=== PATIENT | male | born 1985 | race Caucasian/White ===

== ENCOUNTER 2022-03-20 14:55 | Emergency (ER) | payer OTHER ==
[~2022-03-20] VITALS: Ht 188 cm; Wt 86.4 kg
[2022-03-20] MEDS ORDERED: KETOROLAC 30 MG/ML 1ML VIAL IM ONE (17:55)
[2022-03-20 18:39] VITALS: BP 155/90
== END 2022-03-20 18:55 | disposition home or self-care (01) ==
LOC: M ED 14:55
DX: S99.911A Unspecified injury of right ankle, initial encounter (principal); X50.1XXA Overexertion from prolonged static or awkward postures, initial encounter; Y93.89 Activity, other specified
CPT/HCPCS: 73610; 96372; 99284; J1885

== ENCOUNTER 2022-06-24 06:01 | Emergency (ER) | payer BC, OTHER ==
[~2022-06-24] VITALS: Ht 188 cm; Wt 95.5 kg
[2022-06-24] MEDS ORDERED: KETOROLAC 30 MG/ML 1ML VIAL IV ONE (07:35)
[2022-06-24] MEDS ORDERED: ONDANSETRON 4MG 2ML VIAL IV ONE (07:35)
[2022-06-24] MEDS ORDERED: NS 1,000 ML IV ONE (07:35)
[2022-06-24] MEDS ORDERED: NIRM1TAB6 PO (07:56)
[2022-06-24 08:36] LABS: EOS % 0.4 % (0.0-3.0); HEMATOCRIT 41.7 % (42.0-52.0); HEMOGLOBIN 14.7 g/dl (13.5-17.5); LYMPH # 0.7 10^3/uL (1.5-5.0); LYMPH % 13.9 % (24.0-44.0); MEAN CORPUSCULAR HGB CONC 35.3 g/dl (32.0-36.5); MEAN CORPUSCULAR VOLUME 90.8 fl (80.0-96.0); MONO # 0.3 10^3/uL (0.0-0.8); MONO % 6.4 % (2.0-8.0); NEUTROPHILS # 4.2 10^3/uL (1.5-8.5); NEUTROPHILS % 78.9 % (36.0-66.0); PLATELET COUNT, AUTOMATED 159 10^3/uL (150-450); RED BLOOD COUNT 4.59 10^6/uL (4.30-6.10); WHITE BLOOD COUNT 5.3 10^3/uL (4.0-10.0)
[2022-06-24 08:38] LABS: ALBUMIN 3.9 G/DL (3.2-5.2); ALKALINE PHOSPHATASE 60 U/L (46-116); ALT/SGPT 13 U/L (7.0-40); AST/SGOT 17 U/L (<34); BILIRUBIN,TOTAL 0.6 MG/DL (0.3-1.2); BLOOD UREA NITROGEN 11 MG/DL (9-23); CALCIUM LEVEL 8.4 MG/DL (8.5-10.1); CARBON DIOXIDE LEVEL 29 MMOL/L (20-31); CHLORIDE LEVEL 103 MMOL/L (98-107); CREATININE FOR GFR 0.82 MG/DL (0.70-1.30); GLOMERULAR FILTRATION RATE > 60.0 (>60); GLUCOSE, FASTING 103 MG/DL (60-100); SODIUM LEVEL 139 MMOL/L (136-145)
[2022-06-24] MEDS ORDERED: METOCLOPRAMIDE INJ 10MG/2ML VIAL IV ONE (09:45)
[2022-06-24] MEDS ORDERED: ISOVUE-370 76% 100ML VIAL As Ordered ONE (09:52)
[2022-06-24 10:43] VITALS: O2SAT 97
[2022-06-24] MEDS ORDERED: ONDA4TAB6 PO (11:02)
[2022-06-24 11:11] VITALS: BP 151/79
== END 2022-06-24 11:10 | disposition home or self-care (01) ==
LOC: M ED 06:01
DX: U07.1 COVID-19 (principal)
CPT/HCPCS: 36415; 71045; 71275; 80053; 85025; 85379; 86140; 93005; 96374; 96375; 99284; J1885; J2405; J2765

== ENCOUNTER → 2023-03-27 | Outpatient (CLI) | payer BC ==
[~2023-03-27] MED LIST: NIRM1TAB6 PO; ONDA4TAB6 PO
== END ==
LOC: M SOG 07:45
PROVIDERS: ATTEND Orthopaedic Surgery
DX: M25.571 Pain in right ankle and joints of right foot (principal)

== ENCOUNTER → 2023-10-26 | Outpatient (REF) | payer OTHER | LOC: M LAB REF 18:37 | PROVIDERS: ATTEND Registered Nurse | DX: J02.9 Acute pharyngitis, unspecified (principal) ==

== ENCOUNTER 2024-01-20 13:22 | Emergency (ER) | payer OTHER ==
[~2024-01-20] VITALS: Ht 188 cm; Wt 93.0 kg
[~2024-01-20 13:22] MED LIST changes: +ONDA-282 PO; -ONDA4TAB6 PO
[2024-01-20 14:12] LABS: BASO % 0.6 % (0.0-1.0); EOS % 0.8 % (0.0-3.0); HEMATOCRIT 44.9 % (42.0-52.0); HEMOGLOBIN 16.5 g/dl (13.5-17.5); LYMPH # 1.1 10^3/uL (1.5-5.0); LYMPH % 23.1 % (24.0-44.0); MEAN CORPUSCULAR HEMOGLOBIN 33.1 pg (27.0-33.0); MONO # 0.2 10^3/uL (0.0-0.8); MONO % 4.9 % (2.0-8.0); NEUTROPHILS # 3.4 10^3/uL (1.5-8.5); NEUTROPHILS % 70.2 % (36.0-66.0); PLATELET COUNT, AUTOMATED 171 10^3/uL (150-450); RED BLOOD COUNT 4.99 10^6/uL (4.30-6.10); WHITE BLOOD COUNT 4.9 10^3/uL (4.0-10.0)
[2024-01-20 14:14] LABS: MEAN CORPUSCULAR HGB CONC 36.7 g/dl (32.0-36.5)
[2024-01-20 14:27] LABS: BLOOD UREA NITROGEN 8 MG/DL (9-23); CALCIUM LEVEL 8.8 MG/DL (8.5-10.1); CARBON DIOXIDE LEVEL 28 MMOL/L (20-31); CHLORIDE LEVEL 107 MMOL/L (98-107); CPK CREATINE PHOSPHOKINASE 141 U/L (46-171); CREATININE FOR GFR 0.84 MG/DL (0.70-1.30); GLOMERULAR FILTRATION RATE > 60.0 (>60); GLUCOSE, FASTING 98 MG/DL (60-100); MB/CK RELATIVE INDEX 2.83 (< OR =4); POTASSIUM SERUM 3.9 MMOL/L (3.5-5.1); SODIUM LEVEL 140 MMOL/L (136-145)
[2024-01-20 15:32] LABS: CK-MB VALUE MASS 3.5 NG/ML (<3.6)
[2024-01-20 15:35] LABS: MB/CK RELATIVE INDEX 2.53 (< OR =4)
[2024-01-20 16:27] LABS: MAGNESIUM LEVEL 1.8 MG/DL (1.8-2.4)
[2024-01-20 17:06] VITALS: BP 148/96; TEMP 97.4; O2SAT 98
== END 2024-01-20 17:46 | disposition home or self-care (01) ==
LOC: M ED 13:22
DX: I10 Essential (primary) hypertension (principal); R06.02 Shortness of breath; Z87.891 Personal history of nicotine dependence

== ENCOUNTER → 2025-05-02 | Outpatient (CLI) | payer OTHER ==
[2025-05-02 11:16] LABS: ESTIMATED AVERAGE GLUCOSE 94.0 MG/DL (60-110)
[2025-05-02 11:28] LABS: VITAMIN B12 LEVEL 398 PG/ML (211-911)
[2025-05-02 11:29] LABS: RHEUMATOID FACTOR QUANT < 3.5 IU/ML (<14)
[2025-05-03 06:42] LABS: T P ELECTROPHORESIS SO 6.6 g/dL (6.1-8.1)
[2025-05-04 06:43] LABS: ALBUMIN SPEP 4.5 g/dL (3.8-4.8); ALPHA-1-GLOBULINS SO 0.2 g/dL (0.2-0.3); ALPHA-2-GLOBULINS SO 0.5 g/dL (0.5-0.9); BETA 2 GLOBULIN 0.4 g/dL (0.2-0.5); BETA-GLOBULIN SO 0.4 g/dL (0.4-0.6); GAMMA GLOBULINS SO 0.7 g/dL (0.8-1.7)
[2025-05-05 17:13] LABS: VITAMIN E(ALPHA TOCOPHEROL) 15.1 mg/L (5.7-19.9); VITAMIN E(GAMMA TOCOPHEROL) 1.4 mg/L (<=4.3)
== END ==
LOC: M LAB 10:02
PROVIDERS: ATTEND Psychiatry & Neurology Neurology
DX: R20.0 Anesthesia of skin (principal); G62.9 Polyneuropathy, unspecified